=== PATIENT | male | born 1990 | race Two or more races ===

== ENCOUNTER 2024-09-21 00:59 | Emergency (ER) | payer MEDICAID, OTHER ==
[~2024-09-21] VITALS: Ht 180.3 cm; Wt 95.4 kg
[2024-09-21 01:08] VITALS: BP 126/87
[2024-09-21] MEDS: LIDOCAINE 2%HCL (LOCAL ANESTH.) INJ 10ml MDV IJ ONE (02:00)
[2024-09-21 03:33] VITALS: PULSE 85; RESP 18; O2SAT 96
[2024-09-21] MEDS: BACITRACIN TOP OINT 1 UD PKG TOP ONE (03:33)
== END 2024-09-21 03:35 | disposition home or self-care (01) ==
LOC: ER 00:59
DX: S61.213A Laceration without foreign body of left middle finger without damage to nail, initial encounter (principal); S61.215A Laceration without foreign body of left ring finger without damage to nail, initial encounter; W26.0XXA Contact with knife, initial encounter; Y93.89 Activity, other specified; Y92.89 Other specified places as the place of occurrence of the external cause; Y99.8 Other external cause status
CPT/HCPCS: 12002